=== PATIENT | female | born 1960 | race Caucasian/White ===

== ENCOUNTER → 2019-09-11 09:16 | Outpatient (BNVA) | payer OTHER, SELFPAY | PROVIDERS: Family Provider Family Medicine; PCP Family Medicine; Visit Provider Family Medicine | DX: S69.91XA Unspecified injury of right wrist, hand and finger(s), initial encounter (principal); X58.XXXA Exposure to other specified factors, initial encounter; I10 Essential (primary) hypertension; K21.9 Gastro-esophageal reflux disease without esophagitis | CPT/HCPCS: 73130; 80048 ==

== ENCOUNTER 2019-11-19 06:00 | Outpatient (RCR) | payer OTHER, SELFPAY | END 2019-12-02 23:59 | disposition home or self-care (01) | LOC: MOT 06:00 | PROVIDERS: PCP Family Medicine; Referring Provider Family Medicine; Visit Provider Family Medicine | DX: S69.91XD Unspecified injury of right wrist, hand and finger(s), subsequent encounter (principal); X58.XXXD Exposure to other specified factors, subsequent encounter | CPT/HCPCS: 97018; 97035; 97110; 97140; 97165 ==

== ENCOUNTER 2019-12-03 06:00 | Outpatient (RCR) | payer OTHER, SELFPAY | END 2020-01-01 23:59 | disposition home or self-care (01) | LOC: MOT 06:00 | PROVIDERS: PCP Family Medicine; Visit Provider Family Medicine | DX: S69.91XD Unspecified injury of right wrist, hand and finger(s), subsequent encounter (principal) | CPT/HCPCS: 97018; 97110; 97140; 97760 ==

== ENCOUNTER → 2020-12-26 11:10 | Outpatient (BNVA) | payer OTHER, SELFPAY | PROVIDERS: PCP Family Medicine; Visit Provider Family Medicine | DX: I10 Essential (primary) hypertension (principal); K21.9 Gastro-esophageal reflux disease without esophagitis; R10.12 Left upper quadrant pain; Z13.6 Encounter for screening for cardiovascular disorders; Z13.220 Encounter for screening for lipoid disorders; Z13.1 Encounter for screening for diabetes mellitus; M17.12 Unilateral primary osteoarthritis, left knee | CPT/HCPCS: 80053; 80061 ==